=== PATIENT | male | born 1985 | race Caucasian/White ===

== ENCOUNTER 2016-11-16 15:17 | Emergency (ER) | payer BC ==
[2016-11-16 15:34] VITALS: BP 148/83; PULSE 100; TEMP 98.6; BMI 25.7
--- NOTE | 2016-11-16 17:26 | PDOC ---
History of Present Illness - General History Source: Patient Exam Limitations: No Limitations - History of Present Illness Initial Comments: 11/16/16 17:27 The patient is a 31 year old male, with a significant past medical history of anxiety, hypertriglyceridemia, who presents to the emergency department with intermittent left sided chest pain for a week, SOB for about 4 days. He describes his chest pain as a mild discomfort that is intermittent in nature. He denies any trauma, injury, or recent heavy lifting. The patient reports yesterday developing left arm numbness and tingling. He denies any aggravating or alleviating factors for his SOB. He reports today going to an Urgent Care where he was sent to the ER. He denies any recent fevers, chills, headache or dizziness. He denies any recent nausea, vomit, diarrhea or constipation. He denies any recent dysuria, frequency, urgency or hematuria. He denies any history of blood clots. Allergies: NKDA. Seasonal Allergies. Past surgical history: None reported. Social History: Nonsmoker. Denies EtOH use and recreational drug use. Primary Care Physician: <Charles Malone - Last Filed: 11/16/16 17:27> <Itzel Rider - Last Filed: 11/18/16 13:09> - General Chief Complaint: Shortness of Breath Stated Complaint: SOB, LT ARM SENSATION Time Seen by Provider: 11/16/16 15:53 Past History <Charles Malone - Last Filed: 11/16/16 17:27> - Past Medical History Hypercholesterolemia: Yes - Psycho/Social/Smoking Cessation Hx Suicidal Ideation: No Smoking History: Never smoked <Itzel Rider - Last Filed: 11/18/16 13:09> - Past Medical History Allergies/Adverse Reactions: Allergies Allergy/AdvReac Type Severity Reaction Status Date / Time No Known Allergies Allergy Verified 11/16/16 15:29 Home Medications: Ambulatory Orders NK [No Known Home Medication] 11/16/16 Review of Systems - Review of Systems Able to Perform ROS?: Yes Comments:: 11/16/16 17:27 GENERAL/CONSTITUTIONAL: No fever or chills. No weakness. HEAD, EYES, EARS, NOSE AND THROAT: No change in vision. No ear pain or discharge. No sore throat. CARDIOVASCULAR: +SOB.and chest pain. RESPIRATORY: No cough, wheezing, or hemoptysis. GASTROINTESTINAL: No nausea, vomiting, diarrhea or constipation. GENITOURINARY: No dysuria, frequency, or change in urination. MUSCULOSKELETAL: No joint or muscle swelling or pain. No neck or back pain. SKIN: No rash NEUROLOGIC: No headache, vertigo, loss of consciousness, or change in strength/ sensation. ENDOCRINE: No increased thirst. No abnormal weight change. HEMATOLOGIC/LYMPHATIC: No anemia, easy bleeding, or history of blood clots. ALLERGIC/IMMUNOLOGIC: No hives or skin allergy. <Charles Malone - Last Filed: 11/16/16 17:27> *Physical Exam - Vital Signs Last Vital Signs Temp Pulse Resp BP Pulse Ox 98.6 F 100 H 19 148/83 98 11/16/16 15:11/16/16 15:11/16/16 15:11/16/16 15:11/16/16 15:29 - Physical Exam Comments: 11/16/16 17:27 GENERAL: Awake, alert, and fully oriented, in no acute distress HEAD: No signs of trauma EYES: PERRLA, EOMI, sclera anicteric, conjunctiva clear ENT: Auricles normal inspection, hearing grossly normal, nares patent, oropharynx clear without exudates. Moist mucosa NECK: Normal ROM, supple, no lymphadenopathy, JVD, or masses LUNGS: Breath sounds equal, clear to auscultation bilaterally. No wheezes, and no crackles HEART: Regular rate and rhythm, normal S1 and S2, no murmurs, rubs or gallops ABDOMEN: Soft, nontender, normoactive bowel sounds. No guarding, no rebound. No masses EXTREMITIES: Normal range of motion, no edema. No clubbing or cyanosis. No cords, erythema, or tenderness NEUROLOGICAL: Cranial nerves II through XII grossly intact. Normal speech, normal gait SKIN: Warm, Dry, normal turgor, no rashes or lesions noted. <Charles Malone - Last Filed: 11/16/16 17:27> - Vital Signs Last Vital Signs Temp Pulse Resp BP Pulse Ox 98.6 F 100 H 19 148/83 98 11/16/16 15:11/16/16 15:11/16/16 15:29 11/16/16 15:29 11/16/16 15:29 <Itzel Rider - Last Filed: 11/18/16 13:09> ED Treatment Course - LABORATORY CBC & Chemistry Diagram: 11/16/16 17:30 11/16/16 17:30 <Itzel Rider - Last Filed: 11/18/16 13:09> Medical Decision Making - Medical Decision Making Pt with atypical chest pain. Low risk for ACS and PE by clinical presentation. Labs wnl. D-dimer neg. Stable for DC home. <Itzel Rider - Last Filed: 11/18/16 13:09> *DC/Admit/Observation/Transfer - Attestations Scribe Attestion: 11/16/16 17:28 Documentation prepared by Charles Malone, acting as dental assistant medical assistant for Itzel Rider MD. <Charles Malone - Last Filed: 11/16/16 17:27> - Discharge Dispostion Admit: No <Itzel Rider - Last Filed: 11/18/16 13:09> Diagnosis at time of Disposition: Atypical chest pain - Discharge Dispostion Disposition: HOME Condition at time of disposition: Stable - Referrals Referrals: Yany Pickering MD [Primary Care Provider] - - Patient Instructions Printed Discharge Instructions: DI for Atypical Chest Pain
[2016-11-16 17:43] LABS: BASOPHIL 0.9 % (0-2.0); EOSINOPHIL 1.5 % (0-4.5); MCH 32.3 pg (25.7-33.7); MCHC 35.4 g/dl (32.0-35.9); MEAN CELL VOLUME 91.1 fl (80-96); MEAN PLT VOLUME 9.7 fl (7.5-11.1); PLATELET COUNT 161 K/MM3 (134-434); RDW 12.9 % (11.9-15.9); WHITE BLOOD COUNT 7.7 K/mm3 (4.0-10.0)
[2016-11-16 18:12] LABS: ALBUMIN 4.5 g/dl (3.4-5.0); ANION GAP 7 (8-16); CALCIUM 9.3 mg/dL (8.5-10.1); CO2 29 mmol/L (21-32); COCKROFT - GAULT 129.27; GLUCOSE,RANDOM 91 mg/dL (74-106); SGOT/AST 19 U/L (15-37); SGPT/ALT 25 U/L (12-78)
[2016-11-16 18:15] LABS: ALK PHOS 71 U/L (45-117); BILIRUBIN,TOTAL 0.5 mg/dL (0.2-1.0); TOT PROT 7.7 g/dl (6.4-8.2); TROPONIN I < 0.02 ng/ml (0.00-0.05)
--- NOTE | 2016-11-17 17:29 | EKG ---
Test Reason : Blood Pressure : / mmHG Vent. Rate : 067 BPM Atrial Rate : 067 BPM P-R Int : 158 ms QRS Dur : 092 ms QT Int : 382 ms P-R-T Axes : 065 066 044 degrees QTc Int : 403 ms NORMAL SINUS RHYTHM POSSIBLE LEFT ATRIAL ENLARGEMENT BORDERLINE ECG NO PREVIOUS ECGS AVAILABLE Confirmed by ALICE LEVI, ISRA ([id number]) on 11/17/2016 5:29:17 PM Referred By: Confirmed By:ISRA JENKINS MD
== END 2016-11-16 18:52 | disposition home or self-care (01) ==
LOC: JER 15:17
DX: R07.89 Other chest pain (principal); E78.5 Hyperlipidemia, unspecified; F41.9 Anxiety disorder, unspecified
CPT/HCPCS: 36415; 80053; 82550; 82553; 84484; 85025; 85379; 93005; 93010; 99282-25